=== PATIENT | female | born 1990 | race American Indian/Alaskan Native ===

== ENCOUNTER 2022-05-16 09:08 | Emergency (ER) | payer SELFPAY ==
[2022-05-16 09:32] VITALS: BP 113/44
--- NOTE | 2022-05-16 09:34 | Event Note ---
ED Screening Note ED Screening Note: 32-year-old female history of PUD, migraines presenting with lower abdominal pain, and vaginal discharge headache. Headaches been going on for 2 weeks, constant sensitive to light, nausea. Also reports vaginal discharge which is going on for over 3 months. No fever no vomiting no recent head injury general: Nontoxic appearing no acute distress Cardiac: Regular rate, normal heart sounds Respiratory: Normal lung sounds bilaterally no use of ceramic coater machine muscles GI/-normal sounds, nontender no guarding Musculoskeletal-normal inspection full range of motion Neuro-alert oriented x4. In the setting of a significantly high volume and record number of patients presenting to the emergency department and the fact that we have a limited space to see patients we have implemented the provider in triage protocol this allows an expedited initial exam of patients that might otherwise have left without being seen or who would wait longer than usual to be seen by provider. I interviewed the patient and performed a limited physical exam. This patient is a pulled from the waiting room to triage room for an initial assessment of adrenal studies and then returned to the waiting room pending results of the studies. The ultimate final evaluation and disposition may be performed by another provider depending on room and provider availability.
== END 2022-05-16 15:00 | disposition left against medical advice (07) ==
LOC: ED 09:08
DX: R10.9 Unspecified abdominal pain (principal); R51.9 Headache, unspecified; Z53.21 Procedure and treatment not carried out due to patient leaving prior to being seen by health care provider